=== PATIENT | male | born 1975 | race Caucasian/White ===

== ENCOUNTER 2023-09-18 03:10 | Inpatient (IN) | payer OTHER ==
[2023-09-18 03:55] VITALS: BMI 26.0
[2023-09-18] MEDS ORDERED: BENZONATATE 200 MG CAPSULE PO PRN (04:02)
[2023-09-18] MEDS ORDERED: POLYETHYLENE GLYCOL (HEALTHYLAX) 3350 17 GM PACKET PO PRN (04:02)
[2023-09-18] MEDS ORDERED: MAG HYDROX/AL HYDROX/SIMETH 30 ML UNIT-DOSE CUP PO PRN (04:02)
[2023-09-18] MEDS ORDERED: guaiFENesin 600 MG TABLET.ER (FP) PO PRN (04:02)
[2023-09-18] MEDS ORDERED: NALOXONE HCL 0.4 MG/ML VIAL IM PRN (04:02)
[2023-09-18] MEDS ORDERED: BISMUTH SUBSALICYLATE 524 MG/30 ML PO PRN (04:02)
[2023-09-18] MEDS ORDERED: IBUPROFEN 400 MG TABLET (FP) PO PRN (04:02)
[2023-09-18] MEDS ORDERED: LOPERAMIDE HCL 2 MG CAPSULE PO PRN (04:02)
[2023-09-18] MEDS ORDERED: MAGNESIUM HYDROX 2400MG/30ML ORAL SUSPENSION 30 ML CUP PO PRN (04:02)
[2023-09-18] MEDS ORDERED: NALOXONE (NARCAN) HCL 4 MG/0.1 ML SPRAY NS PRN (04:02)
[2023-09-18] MEDS: hydrOXYzine PAMOATE 25 MG CAPSULE (FP) PO PRN (04:40)
[2023-09-18] MEDS: cloNIDine HCL 0.1 MG TABLET PO ONE ×2 (04:41→10:18)
[2023-09-18] MEDS ORDERED: chlordiazePOXIDE HCL 25 MG CAPSULE PO PRN (09:42)
[2023-09-18] MEDS: PRENATAL VITAMINS W/ FOLIC ACID TABLET (FP) PO SCH (10:17)
[2023-09-18] MEDS: METHOCARBAMOL 500 MG TABLET PO PRN (10:18)
[2023-09-18] MEDS: chlordiazePOXIDE HCL 25 MG CAPSULE PO SCH (10:18)
[2023-09-18] MEDS: amLODIPine BESYLATE 10 MG TABLET (FP) PO SCH (10:18)
[2023-09-18] MEDS: IBUPROFEN 600 MG TABLET (FP) PO PRN (12:21)
[2023-09-18] MEDS: THIAMINE 100 MG TABLET PO SCH (22:19)
[2023-09-18] MEDS: MELATONIN 5 MG TABLETS PO SCH (22:20)
[2023-09-19] MEDS: LOSARTAN POTASSIUM 50 MG TABLET PO SCH (09:55)
[2023-09-19] MEDS: HYDROCHLOROTHIAZIDE 25 MG TABLET (FP) PO SCH (09:55)
[2023-09-19] MEDS: amLODIPine BESYLATE 5 MG TABLET (FP) PO SCH (09:55)
[2023-09-19] MEDS: BENZOCAINE/MENTHOL (CHLORASEPTIC ) LOZENGE MM PRN (10:05)
[2023-09-19 16:01] LABS: POTASSIUM 3.8 mmol/L (3.5-5.1)
[2023-09-19 16:02] LABS: HEMATOCRIT 37.1 % (35.4-49); HEMOGLOBIN 12.5 GM/dL (11.7-16.9); MCH 30.4 pg (25.7-33.7); MCHC 33.8 g/dl (32.0-35.9); MEAN CELL VOLUME 89.9 fl (80-96); MEAN PLT VOLUME 8.8 fl (7.5-11.1); PLATELET COUNT 143 10^3/uL (134-434); RBC 4.13 M/mm3 (4.00-5.60); RDW 14.1 % (11.9-15.9)
[2023-09-19 16:14] LABS: CALCIUM 8.7 mg/dL (8.5-10.1)
[2023-09-19 16:15] LABS: ALBUMIN 3.4 g/dl (3.4-5.0); BLOOD UREA NITROGEN 10.4 mg/dL (7-18)
[2023-09-19 16:18] LABS: CREATININE 0.9 mg/dL (0.55-1.3)
[2023-09-19 16:20] LABS: BILIRUBIN,TOTAL 1.4 mg/dL (0.2-1); TOT PROT 6.1 g/dl (6.4-8.2)
[2023-09-20] MEDS: chlordiazePOXIDE HCL 25 MG CAPSULE PO SCH (05:29)
[2023-09-21] MEDS ORDERED: chlordiazePOXIDE HCL 10 MG CAPSULE PO PRN
[2023-09-21] MEDS: chlordiazePOXIDE HCL 10 MG CAPSULE PO SCH (05:20)
[2023-09-21] MEDS: ACETAMINOPHEN 325 MG TABLET (FP) PO PRN (09:24)
[2023-09-21] MEDS: NALTREXONE HCL 50 MG TABLET PO SCH (11:40)
[2023-09-21] MEDS: ONDANSETRON *ODT* 4 MG TABLET SL PRN (17:33)
[2023-09-22] MEDS: chlordiazePOXIDE HCL 10 MG CAPSULE PO SCH (05:46)
[2023-09-22 06:19] VITALS: TEMP 97.7
[2023-09-22 08:45] VITALS: BP 120/74; PULSE 101; RESP 19
[2023-09-23] MEDS ORDERED: chlordiazePOXIDE HCL 10 MG CAPSULE PO ONE (05:00)
== END 2023-09-22 11:14 | disposition home or self-care (01) | DRG 775 ==
LOC: YASAS 03:10 → Y6N 04:54
PROVIDERS: ADMIT Allergy & Immunology; ATTEND Surgery
PROC: HZ2ZZZZ Detoxification Services for Substance Abuse Treatment (ICD-10-PCS; principal; 2023-09-18)
DX: F10.230 Alcohol dependence with withdrawal, uncomplicated (principal); I10 Essential (primary) hypertension; E78.5 Hyperlipidemia, unspecified; Z87.891 Personal history of nicotine dependence; Z98.84 Bariatric surgery status; Z56.0 Unemployment, unspecified
CPT/HCPCS: 36415; 80053; 80305; 80307; 82140; 85027; 86780; 93005; 93010; Q0162